=== PATIENT | male | born 1970 | race Caucasian/White ===

== ENCOUNTER → 2017-05-11 | Outpatient (CLI) | payer OTHER ==
[~2017-05-11] MED LIST: NS 100 ML IV 100 ML IV ONE
--- NOTE | 2017-05-11 16:21 | CT ---
HISTORY: Abdominal pain Study: CT abdomen with a without IV contrast an with oral contrast Comparison: None Technique: Multiple axial images of the abdomen were obtained from the lung bases to the iliac crests before a nd after the administration of IV contrast. Sagittal and coronal reformations were provided. Findings: The visualized portions of the lung bases are unremarkable. There is a lobular contour to the liver which is slightly small with a maximum sagittal length of 11.65 centimeters of the right lobe. Ther e is mild splenomegaly measuring at least 14 centimeters in length. No focal liver mass is demonstra lorenza. The pancreas and adrenal glands and kidneys are unremarkable.. The gallbladder is mildly disten ded with a single small dependent 8 millimeter gallstone.. There is no biliary dilatation. The main portal vein is distended to almost 1.9 centimeters. There is collateral flow to each the umbilical vein. The splenic vein is enlarged. The left lobe of the liver is atrophic. There are varicose veins along the lesser curvature of the stomach. No significant mesenteric lymphadenopathy or stranding can be observed. No free fluid or free air is seen within the abdomen. The appendix is normal. Vis ualized large and small bowel is unremarkable. No adenopathy is demonstrated.. The bony structures are grossly intact. IMPRESSION: 1. Apparent cirrhosis of the liver with secondary associated portal venous hypertension and demonst ration of numerous systemic portal venous collaterals and splenomegaly 2. Cholelithiasis and a distended gallbladder Reported By:
== END | disposition home or self-care (01) | DRG 392 ==
LOC: RAD 13:27
DX: R10.84 Generalized abdominal pain (principal); K80.80 Other cholelithiasis without obstruction; K82.8 Other specified diseases of gallbladder
CPT/HCPCS: 74170; A4222